=== PATIENT | male | born 2000 | race Caucasian/White ===

== ENCOUNTER 2020-11-29 09:00 | Emergency (ER) | payer MEDICAID, OTHER ==
[~2020-11-29] VITALS: Ht 167.6 cm; Wt 64.0 kg
[~2020-11-29 09:00] MED LIST: BENADRYL
[2020-11-29 09:06] VITALS: BP 126/70
[2020-11-29] MEDS ORDERED: ACETAMINOPHEN 500MG TABLET PO ONE (10:00)
[2020-11-29] MEDS ORDERED: ACET-2708 MT (10:39)
[2020-11-29] MEDS ORDERED: AMOX-494 MT (10:39)
== END 2020-11-29 11:30 | disposition home or self-care (01) ==
LOC: ER 09:00
DX: K06.8 Other specified disorders of gingiva and edentulous alveolar ridge (principal); Z48.814 Encounter for surgical aftercare following surgery on the teeth or oral cavity; Z98.890 Other specified postprocedural states
CPT/HCPCS: 99283